=== PATIENT | female | born 1980 | race American Indian/Alaskan Native ===

== ENCOUNTER 2016-08-06 17:41 | Emergency (ER) | payer MEDICAID ==
--- NOTE | 2016-08-06 18:41 | Emergency Department Report ---
Chief Complaint: Abdominal Pain Stated Complaint: ABD/SHOULDER/BACK PAIN Time Seen by Provider: 08/06/16 18:38 - HPI History of Present Illness: 36 y/o female complain of abdominal pain x 2 days .pt voice complain of nausea at present.pt state she was diagnosed with cancer 2 months ago .pt denies any prior medication or treatment . - ROS Review of Systems: per HPI - Exam Vital Signs: Vital Signs 08/06/16 17:44 Temperature 99.1 F Pulse Rate 77 Respiratory 18 Rate Blood Pressure 143/80 O2 Sat by Pulse 99 Oximetry Physical Exam: GENERAL: The patient is well-developed and well-nourished. Patient is in NAD. HENT: Normocephalic. Atraumatic. Patient has moist mucous membranes. Throat: No erythema, swelling or exudates. EYES: Extraocular motions are intact, PERRL NECK: Supple. No meningitic signs are noted. There is no adenopathy noted. CHEST/LUNGS: Clear to auscultation bilaterally. No wheezing, rales or rhonchi noted. There is no respiratory distress noted. HEART/CARDIOVASCULAR: Regular rate and rhythm. Normal S1 S2. No murmurs, rubs , clicks, or gallops. ABDOMEN: Abdomen is soft, nontender.. Bowel sounds normoactive. There is no abdominal distention. Negative rebound tenderness. Negative Rovsing. : Deferred. SKIN: There is no rash. There is no edema. There is no diaphoresis. NEURO: The patient is A&Ox3. The patient has no focal neurologic deficits. MUSCULOSKELETAL: There is no tenderness or deformity. There is no limitation range of motion. PSYCH: Pt has appropriate mood and affect. MSE screening note: Focused history and physical exam performed. Due to findings the following was ordered: ED Disposition for MSE Condition: Stable Instructions: Abdominal Pain (ED)
[2016-08-06 19:04] LABS: Hematocrit 37.7 % (30.3-42.9); Mean Corpuscular HGB Conc 32 % (30-34); Mean Corpuscular Volume 75 fl (79-97); Platelet Count 272 K/mm3 (140-440); Red Blood Count 5.05 M/mm3 (3.65-5.03); Red Cell Distribution Width 16.1 % (13.2-15.2); White Blood Count 6.5 K/mm3 (4.5-11.0)
[2016-08-06 19:08] LABS: Mean Corpuscular Hemoglobin 24 pg (28-32)
[2016-08-06 19:34] LABS: Amylase 58 units/L (27-131); Blood Urea Nitrogen 14 mg/dL (7-17); Carbon Dioxide 24 mmol/L (22-30); Chloride 103.1 mmol/L (98-107); Glucose 96 mg/dL (65-100); Lipase 15 units/L (13-60); Sodium 139 mmol/L (137-145)
[2016-08-06 19:36] LABS: Anion Gap 16 mmol/L
[2016-08-06 19:38] LABS: Basophils % (Manual) 0 % (0.0-1.8); Blastocytes % (Manual) 0 %
[2016-08-06 19:40] LABS: Anisocytosis 1+; Diff Status Complete; Poikilocytosis Few
[2016-08-06 19:52] LABS: Bilirubin,Urine NEG (Negative); Blood,Urine NEG (Negative); Ketones,Urine NEG (Negative); Leukocyte Esterase,Urine NEG (Negative); Mucus,Urine FEW /HPF; Nitrite,Urine NEG (Negative); Protein,Urine <15 mg/dL mg/dL (Negative)
[2016-08-06] MEDS ORDERED: ZOFRAN ODT PO ONE (20:29)
[2016-08-06] MEDS ORDERED: DILAUDID IM ONE (20:29)
--- NOTE | 2016-08-06 20:38 | Emergency Department Report ---
HPI - General Chief Complaint: Abdominal Pain Time Seen by Provider: 08/06/16 19:49 - HPI HPI: The patient is a 36-year-old female presents for evaluation of abdominal pain. The patient reports abdominal pain since y/d morning, 8 out of 10 in severity, sharp in quality, concentrated to the epigastric abdomen, and is exacerbated with retching. She reports associated nausea without emesis. The patient denies fever, chills, night sweats, diarrhea, blood in the stool, dark tarry stool, dysuria, hematuria, flank pain, genital discharge, inability to pass flatus. ED Past Medical Hx - Past Medical History Hx Hypertension: Yes Hx Asthma: Yes Additional medical history: elevated heart rate-takes beta soraida - Surgical History Additional Surgical History: knee, x4, upcoming thyroid surgery - Social History Smoking Status: Current Every Day Smoker Substance Use Type: None - Medications Home Medications: Home Medications Medication Instructions Recorded Confirmed Last Taken Type ALBUTEROL Inhaler [ProAir HFA 1 - 2 puff IH Q4-6H PRN 08/06/16 08/06/16 Unknown History Inhaler] Metoprolol [Lopressor TAB] 50 mg PO BID 08/06/16 08/06/16 Unknown History traMADol [Ultram 50 MG tab] 50 mg PO Q4-6H PRN 08/06/16 08/06/16 Unknown History ED Review of Systems ROS: Stated complaint: ABD/SHOULDER/BACK PAIN Other details as noted in HPI Constitutional: denies: fever ENT: denies: throat or neck pain Respiratory: denies: cough, shortness of breath Cardiovascular: denies: chest pain Endocrine: denies unexplained weight loss or gain Gastrointestinal: reports abdominal pain, nausea Genitourinary: denies: dysuria Musculoskeletal: denies: leg swelling Skin: denies: rash Neurological: denies: headache Hematological/Lymphatic: denies: easy bleeding or easy bruising Psych: denies sadness or hopelessness Physical Exam - Physical Exam Vital Signs: Vital Signs 08/06/16 08/06/16 08/06/16 17:44 19:28 19:34 Temperature 99.1 F Pulse Rate 77 75 Respiratory 18 18 Rate Blood Pressure 143/80 123/78 Blood Pressure 134/73 [Left] O2 Sat by Pulse 99 100 Oximetry 08/06/16 20:00 Temperature Pulse Rate Respiratory Rate Blood Pressure 126/63 Blood Pressure [Left] O2 Sat by Pulse 100 Oximetry Physical Exam: General: well-nourished, well-developed, no acute distress Head: Normocephalic, atraumatic Eyes: normal sclera ENT: Mucous membranes are pink and moist Neck: trachea midline, neck supple, No neck stiffness, no cervical adenopathy Respiratory: Breath sounds equal bilaterally, no wheezing, rales, or rhonchi Cardio: S1 and S2 present, no murmurs, rubs, gallops, capillary refill is brisk Abdomen: Normoactive bowel sounds, soft abdomen, epigastric and left lower quadrant tenderness to palpation present, no rigidity, no guarding or rebound tenderness Musc: No pitting edema Skin: No rash Neuro: no facial drooping, normal speech Psych: Normal affect ED Course Vital Signs 08/06/16 08/06/16 08/06/16 17:44 19:28 19:34 Temperature 99.1 F Pulse Rate 77 75 Respiratory 18 18 Rate Blood Pressure 143/80 123/78 Blood Pressure 134/73 [Left] O2 Sat by Pulse 99 100 Oximetry 08/06/16 20:00 Temperature Pulse Rate Respiratory Rate Blood Pressure 126/63 Blood Pressure [Left] O2 Sat by Pulse 100 Oximetry ED Medical Decision Making - Lab Data Result diagrams: 08/06/16 18:51 08/06/16 18:51 - Medical Decision Making The patient was seen and examined by myself. The patient is placed on a electronic device monitor and continuous pulse ox. On initial evaluation, the patient was found to be in no distress. Evaluation orders are placed. The patient is given an IM dose of Dilaudid for pain. Lab results were non-concerning including WBC, hemoglobin, hematocrit, electrolytes, renal function, LFTs, lipase, and urinalysis. The patient was reevaluated and reported that their symptoms were markedly improved. The patient is stable for discharge with outpatient follow-up. The patient is given follow-up and return instructions. The patient expressed understanding and agreed with the plan. The patient is discharged in stable condition. Critical care attestation.: If time is entered above; I have spent that time in minutes in the direct care of this critically ill patient, excluding procedure time. ED Disposition Clinical Impression: Acute generalized abdominal pain Disposition: DISCHARGED TO HOME OR SELFCARE Is pt being admited?: No Does the pt Need Aspirin: No Condition: Stable Instructions: Abdominal Pain (ED) Referrals: PRIMARY CARE, [Primary Care Provider] - 3-5 Days Time of Disposition: 20:33
[2016-08-06 23:50] VITALS: BP 128/65
== END 2016-08-06 23:25 | disposition home or self-care (01) ==
LOC: ED 17:41
DX: R10.84 Generalized abdominal pain (principal); I10 Essential (primary) hypertension; J45.909 Unspecified asthma, uncomplicated; F17.200 Nicotine dependence, unspecified, uncomplicated
CPT/HCPCS: 36415; 80048; 81001; 82150; 83690; 84702; 85007; 85025; 96372; 99284; J1170; Q0162